=== PATIENT | female | born 2000 | race Caucasian/White ===

== ENCOUNTER 2020-05-13 06:23 | Day surgery (SDC) | payer OTHER ==
[~2020-05-13 06:23] MED LIST: BENTYL10 MG/ML IM; ZANTAC150 M1 PO
== END 2020-05-13 16:20 | disposition home or self-care (01) ==
LOC: CIR.AMB 06:23
PROVIDERS: ATTEND Surgery
DX: D24.2 Benign neoplasm of left breast (principal)

== ENCOUNTER 2024-09-27 13:33 | Emergency (ER) | payer OTHER ==
[~2024-09-27] VITALS: Ht 160 cm; Wt 52.2 kg
[2024-09-27] MEDS ORDERED: SPIRONOLACTONE50 MG (14:29)
[2024-09-27] MEDS ORDERED: BACTRIM DS TAB1 EACH PO (14:52)
[2024-09-27] MEDS ORDERED: KETO10TA2 PO (14:52)
[2024-09-27] MEDS ORDERED: PYRIDIUM200 MG PO (14:52)
[2024-09-27] MEDS ORDERED: TAMS0.4C PO (14:52)
[2024-09-27] MEDS ORDERED: CEFTRIAXONE SODIUM 1,000 MG VIAL IM ONE (15:00)
== END 2024-09-27 15:15 | disposition home or self-care (01) ==
LOC: ER 13:35
DX: N39.0 Urinary tract infection, site not specified (principal)

== ENCOUNTER 2025-03-04 08:47 | Emergency (ER) | payer OTHER ==
[~2025-03-04] VITALS: Ht 157.5 cm; Wt 65.3 kg
[~2025-03-04 08:47] MED LIST changes: +BACTRIM DS TAB1 EACH PO; +KETO10TA2 PO; +PYRIDIUM200 MG PO; +SPIRONOLACTONE50 MG; +TAMS0.4C PO
[2025-03-04] MEDS ORDERED: GLUCOSAMINE1000 MG (09:20)
[2025-03-04] MEDS ORDERED: AVIANE-28 TABL1 EACH (09:21)
[2025-03-04] MEDS ORDERED: 0.9 % SODIUM CHLORIDE 1,000 ML IV STA (09:32)
[2025-03-04] MEDS ORDERED: BARIUM SULFATE 450 ML ORAL.SUSP PO ONE (09:35)
[2025-03-04 09:58] LABS: HEMATOCRIT 43.6 % (36.0-45.00); HEMOGLOBIN 14.8 g/dL (12.0-15.00); MEAN CELL VOLUME 89.8 fL (80.00-100.00); MEAN CORPUSCULAR HEMOGLOBIN 30.4 pg (27.00-32.0); MEAN CORPUSCULAR HGB CONC 33.9 g/dl (32.0-36.0); PLATELET COUNT 206 K/uL (150-450); RED BLOOD COUNT 4.85 M/uL (4.00-6.00); RED CELL DISTRIBUTION WIDTH 14.3 % (11.5-14.5)
[2025-03-04 10:35] LABS: CALCIUM 9.3 mg/dL (8.5-10.1); CREATININE SERUM 0.75 mg/dL (0.55-1.02); GFR 93.41; POTASSIUM 4.27 mEq/L (3.5-5.1)
[2025-03-04 12:27] LABS: PH,URINE 5.5 (5.0-8.0); URINE APPEARANCE Clear; URINE BILIRRUBIN Negative (NEGATIVE); URINE BLOOD Large; URINE COLOR Orange; URINE GLUCOSE Negative (NEGATIVE); URINE KETONE Negative (NEGATIVE); URINE LEUKOCYTE Negative; URINE NITRATE Negative; URINE PROTEIN 30 (NEGATIVE); URINE UROBILINOGEN 0.2 E.U./dl
[2025-03-04 12:31] LABS: URINE BACTERIA 63.6 uL (0.0-1933); URINE RBC 775.4 uL (0.0-20.8); URINE WBC 15.8 uL (0.0-23.2)
[2025-03-04] MEDS ORDERED: KETOROLAC TROMETHAMINE 30 MG VIAL IV ONE (18:45)
[2025-03-04] MEDS ORDERED: KETOROLAC TROMETHAMINE 30 MG VIAL ONE (19:13)
== END 2025-03-04 19:19 | disposition home or self-care (01) ==
LOC: ER 08:48
PROVIDERS: Emergency Medicine
DX: N20.0 Calculus of kidney (principal); R10.9 Unspecified abdominal pain; Z88.2 Allergy status to sulfonamides
CPT/HCPCS: 36415; 74177; 76770; Q9965